=== PATIENT | female | born 1970 | race Caucasian/White ===

== ENCOUNTER 2023-07-21 13:41 | Observation (INO) ==
[2023-07-21] MEDS ORDERED: NovoLIN R (or HumuLIN R) SUBCUT PRN (18:48)
[2023-07-21] MEDS ORDERED: CONSULT PHARMACY - POTASSIUM & MAGNESIUM XX SCH (19:00)
--- NOTE | 2023-07-21 19:00 | EKG ---
Test Reason : sob Blood Pressure : */* mmHG Vent. Rate : 86 BPM Atrial Rate : 86 BPM P-R Int : 170 ms QRS Dur : 88 ms QT Int : 388 ms P-R-T Axes : 54 41 67 degrees QTc Int : 464 ms Normal sinus rhythm Low voltage QRS Borderline ECG No previous ECGs available Confirmed by Cedric Gallegos ([id number]) on 07/24/2023 9:18:27 AM Referred By: Confirmed By: Cedric Gallegos
[2023-07-21 19:28] LABS: BASOPHILS # (AUTO) 0.1 X10^3/uL (0.0-0.1); BASOPHILS % (AUTO) 0.8 % (0.2-1.0); EOSINOPHILS # (AUTO) 0.4 x10^3/uL (0.0-0.2); EOSINOPHILS % (AUTO) 3.5 % (0.9-2.9); HEMATOCRIT 36.9 % (36.0-47.0); HEMOGLOBIN 12.2 g/dL (12.0-16.0); LYMPHOCYTES # (AUTO) 1.4 X10^3/uL (1.3-2.9); LYMPHOCYTES % (AUTO) 13.2 % (21.0-51.0); MEAN CORPUSCULAR HGB CONC 33.1 g/dL (33.0-35.0); MEAN CORPUSCULAR VOLUME 87.6 fL (80.0-100.0); MEAN PLATELET VOLUME 7.9 fL (7.4-11.0); MONOCYTES # (AUTO) 0.5 x10^3/uL (0.3-0.8); MONOCYTES % (AUTO) 4.9 % (0.0-13.0); NEUTROPHILS % (AUTO) 77.6 % (42.0-75.0); PLATELET COUNT 311 X10^3/uL (150.0-450.0); RED BLOOD COUNT 4.21 X10^6/uL (3.5-5.4); RED CELL DISTRIBUTION WIDTH 14.6 % (11.6-16.5); WHITE BLOOD COUNT 10.3 X10^3/uL (3.6-10.0)
[2023-07-21 19:38] LABS: ALBUMIN 2.7 g/dL (3.4-5.0); CARBON DIOXIDE 37.7 mmol/L (21-32); CREATININE 1.64 mg/dL (0.55-1.02); POTASSIUM 3.8 mmol/L (3.5-5.1); TOTAL PROTEIN 7.1 g/dL (6.4-8.2)
[2023-07-21] MEDS ORDERED: K-DUR TAB 20 MEQ PO ONE (20:00)
[2023-07-21] MEDS: NS 1,000 ML IV 1,000 ML IV SCH (22:45)
[2023-07-21] MEDS: ZOSYN VIAL 4.5 GRAMS 4.5 G in NS 100 ML IV 100 ML IV SCH (22:45)
[2023-07-21] MEDS: NICOTINE PATCH TD SCH (22:46)
[2023-07-21] MEDS: MAG-OX TAB PO SCH ×2 (22:46→22:47)
[2023-07-21] MEDS: SNACK - Diabetic Appropriate PO SCH ×2 (22:47→22:48)
[2023-07-21] MEDS: PATIENT'S HOME MEDICATION (Buprenorphine Hcl 8 mg tablet, sublingual) SL SCH (22:47)
[2023-07-21] MEDS: CATAPRES TAB 0.1 MG PO SCH (22:47)
--- NOTE | 2023-07-22 01:15 | RAD ---
EXAM:CHEST, 1 VIEWHISTORY:SOB;COMPARISON:No relevant prior studies available.TECHNIQUE:Chest radiographic imaging, AP portable projection, 1 imageFINDINGS:No cardiomegaly.No focal airspace disease.No pleural effusion.No pneumothorax.No acute osseous abnormality.IMPRESSION:No imaging findings of acute cardiopulmonary disease.THIS IS AN ELECTRONICALLY VERIFIED FINAL REPORT07/22/2023 1:12 AM - Electronically signed by Davion Walker MD
[2023-07-22] MEDS ORDERED: TYLENOL 325 MG TAB PO PRN (02:38)
[2023-07-22 04:38] LABS: BASOPHILS # (AUTO) 0.1 X10^3/uL (0.0-0.1); BASOPHILS % (AUTO) 0.9 % (0.2-1.0); EOSINOPHILS # (AUTO) 0.3 x10^3/uL (0.0-0.2); EOSINOPHILS % (AUTO) 3.6 % (0.9-2.9); HEMATOCRIT 35.7 % (36.0-47.0); HEMOGLOBIN 11.8 g/dL (12.0-16.0); LYMPHOCYTES # (AUTO) 1.6 X10^3/uL (1.3-2.9); LYMPHOCYTES % (AUTO) 16.8 % (21.0-51.0); MEAN CORPUSCULAR HEMOGLOBIN 29.1 pg (27.0-34.0); MEAN CORPUSCULAR VOLUME 88.2 fL (80.0-100.0); MONOCYTES # (AUTO) 0.6 x10^3/uL (0.3-0.8); NEUTROPHILS # (AUTO) 6.9 x10^3/uL (2.2-4.8); NEUTROPHILS % (AUTO) 72.7 % (42.0-75.0); PLATELET COUNT 322 X10^3/uL (150.0-450.0); RED BLOOD COUNT 4.05 X10^6/uL (3.5-5.4); RED CELL DISTRIBUTION WIDTH 14.8 % (11.6-16.5); WHITE BLOOD COUNT 9.4 X10^3/uL (3.6-10.0)
[2023-07-22 04:48] LABS: ALBUMIN 2.7 g/dL (3.4-5.0); CALCIUM 9.1 mg/dL (8.5-10.1); CARBON DIOXIDE 38.1 mmol/L (21-32); COR CA(FOR HYPOALB) 10.1 mg/dL (8.5-10.1); CREATININE 1.55 mg/dL (0.55-1.02); POTASSIUM 3.9 mmol/L (3.5-5.1); TOTAL PROTEIN 7.1 g/dL (6.4-8.2)
[2023-07-22] MEDS: PATIENT'S HOME MEDICATION (Buprenorphine Hcl 8 mg tablet, sublingual) SL SCH ×3 (05:59→21:12)
[2023-07-22] MEDS: CATAPRES TAB 0.1 MG PO SCH ×3 (05:59→21:12)
[2023-07-22] MEDS: ZOSYN VIAL 4.5 GRAMS 4.5 G in NS 100 ML IV 100 ML IV SCH ×3 (05:59→21:11)
[2023-07-22] MEDS: NS 1,000 ML IV 1,000 ML IV SCH ×2 (07:35→21:28)
[2023-07-22] MEDS ORDERED: CONSULT PHARMACY - POTASSIUM & MAGNESIUM XX SCH (08:00)
[2023-07-22] MEDS: NICOTINE PATCH TD SCH (08:37)
[2023-07-22] MEDS: MAG-OX TAB PO SCH ×2 (08:38→09:52)
[2023-07-22] MEDS: CELEXA PO SCH (08:38)
[2023-07-22] MEDS: ZYLOPRIM PO SCH (08:38)
[2023-07-22] MEDS: COZAAR PO SCH (10:53)
[2023-07-22] MEDS: LOVENOX INJ 40 MG SYR SC SCH (10:54)
--- NOTE | 2023-07-22 10:56 | VAS ---
EXAM:[facility] Bilateral lower extremity DVT ultrasound examination with Doppler imaging.HISTORY:; BLE CELLULITIS, CHF, SOB . Evaluate for evidence for DVT.Bilateral lower extremity pain and swelling.COMPARISON:: NoneTECHNIQUE:Ultrasound of the deep venous vasculature of the bilateral lower extremities was performed. Color and spectral doppler imaging was utilized for the purposes of this examination as well.FINDINGS:The deep veins of both lower extremities are normal in size and configuration. No intraluminal filling defects are seen on grayscale or color flow imaging.The veins compress normally. Doppler waveforms are normal at rest and with augmentation.IMPRESSION:Negative bilateral lower extremity DVT ultrasound exam(s).THIS IS AN ELECTRONICALLY VERIFIED FINAL REPORT07/22/2023 10:53 AM - Electronically signed by Sam Marte
[2023-07-22] MEDS ORDERED: PHARMACY CONSULT - LOVENOX XX SCH (11:00)
--- NOTE | 2023-07-22 13:16 | DR.UPDATE ---
H&P Update Prescription drug monitoring program results: PDMP reviewed and no concerns identified H&P Reviewed: Yes Any changes to H&P?: Yes Changes noted:: WAS A DIRECT ADMISSION FOR TREATMENT OF BILATERAL LOWER EXTREMITY CELLULITIS, BLE SWELLING, SHORTNESS OF BREATH, R/O DVT, CHF. SHE HAS A PMH OF CHF, HTN, ARTHRITIS, GOUT, DM II. SHE HAD BEEN TREATED IN THE OFFICE WITH A ROUND OF DOXYCYCLINE, BUT DENIED IMPROVEMENT IN SYMPTOMS DESPITE COMPLIANCE WITH MEDS. ON ADMISSION, HER VITALS WERE: 98.2-85-20-92%-132/76. LABS WERE OBTAINED. WBC 10.3, RBC 4.21, HGB 12.2, HCT 36.9, PLT COUNT 311, D-DIMER 1.03, SODIUM 136, POTASSIUM 3.8, CHLORIDE 96, CARBON DIOXIDE 37.7, BUN 34, CREATININE 1.64, GLUCOSE 134, MAGNESIUM 1.5, TOTAL BILI 0.30, AST 18, ALT 25, ALK PHOS 91, CREATINE KINASE 112, TROPONIN 16.8, BNP 12.3, TOTAL PROTEIN 7.1, ALBUMIN 2.7. BLOOD CULTURES WERE SET UP. CHEST XRAY WAS OBTAINED AND REVEALED: No imaging findings of acute cardiopulmonary disease. BILATERAL LOWER EXTREMITY VENOUS DOPPLER WAS NEGATIVE FOR DVT. EKG WAS OBTAINED AND REVEALED: NORMAL SINUS RHYTHM WITH HR 86 BPM. SHE WAS STARTED ON NORMAL SALINE AT KVO, ZOSYN 4.5 IV TID, OTBS ACHS, NOVOLIN R SLIDING SCALE, LOVENOX 40MG SC DAILY, TYLENOL 650MG Q4H PRN, NICOTINE 21MG PATCH. WE WILL RESUME HER HOME MEDICATIONS OF ZYLOPRIM, CELEXA, CATAPRES, BUPRENORPHINE, COZAAR. OTHERWISE, WE PLAN TO FOLLOW UP WITH AM LABS AND CONTINUE TO MONITOR. TIME SPENT ON CLINICAL ASSESSMENT, REVIEWING LABS AND IMAGING, DECISION MAKING, AND DOCUMENTATION GREATER THAN 75 MINUTES. Patient was examined?: Yes Vital Signs: Temp Pulse Resp BP Pulse Ox O2 Del Method O2 Flow Rate 07/22/23 10:30 79 29 H 95 07/22/23 10:15 78 20 93 L 07/22/23 10:00 119/59 07/22/23 10:00 78 20 94 L 07/22/23 09:45 78 28 H 93 L 07/22/23 09:30 80 31 H 95 07/22/23 09:15 72 20 95 07/22/23 09:00 73 31 H 96 07/22/23 09:00 130/68 07/22/23 08:49 70 34 H 95 07/22/23 08:30 71 23 97 07/22/23 08:15 68 16 93 L 07/22/23 09:03 Nasal Cannula 3 07/22/23 08:00 125/78 07/22/23 08:00 97.7 F 69 20 94 L 07/22/23 07:45 72 22 95 07/22/23 07:30 72 32 H 94 L 07/22/23 07:15 78 29 H 93 L 07/22/23 07:00 78 18 94 L 07/22/23 07:00 117/71 07/22/23 06:45 79 16 94 L 07/22/23 06:30 80 32 H 94 L 07/22/23 06:15 82 40 H 93 L 07/22/23 06:00 81 14 95 07/22/23 06:00 111/70 07/22/23 05:00 84 20 94 L 07/22/23 05:00 102/51 07/22/23 04:01 20 07/22/23 04:00 84 33 H 94 L 07/22/23 04:00 111/56 07/22/23 03:00 81 28 H 95 07/22/23 03:00 133/56 07/22/23 03:01 28 H 07/22/23 02:37 81 22 96 07/22/23 02:00 80 27 H 96 07/22/23 02:00 130/59 07/22/23 01:45 77 28 H 97 07/22/23 01:30 79 18 97 07/22/23 01:24 91 H 86 L 07/22/23 01:00 91 H 18 95 07/22/23 01:00 148/65 07/22/23 00:45 90 21 95 07/22/23 00:30 87 28 H 94 L 07/22/23 00:15 93 H 30 H 93 L 07/22/23 00:04 85 31 H 93 L 07/22/23 00:04 165/74 07/22/23 00:00 85 28 H 93 L 07/22/23 00:04 94 H 21 165/74 95 Nasal Cannula 3 07/21/23 23:03 82 34 H 96 07/21/23 23:03 135/89 07/21/23 23:00 84 30 H 96 07/21/23 22:45 88 25 H 95 07/21/23 22:30 89 40 H 94 L 07/21/23 22:15 92 H 43 H 94 L 07/21/23 22:00 89 28 H 93 L 07/21/23 22:00 140/68 07/21/23 21:00 85 19 94 L 07/21/23 21:00 134/73 07/21/23 20:29 Nasal Cannula 2 07/21/23 20:00 83 28 H 132/66 95 07/21/23 20:00 132/66 07/21/23 19:13 98.3 F 83 25 H 125/68 97 07/21/23 18:30 86 34 H 91 L 07/21/23 18:15 89 5 L 91 L 07/21/23 18:04 127/67 07/21/23 18:04 85 19 07/21/23 19:00 Nasal Cannula 2 07/21/23 18:00 87 33 H 07/21/23 17:45 94 H 50 H 91 L 07/21/23 17:30 82 36 H 94 L 07/21/23 17:15 85 26 H 89 L 07/21/23 17:01 82 34 H 93 L 07/21/23 17:01 114/56 07/21/23 17:00 82 28 H 94 L 07/21/23 16:45 79 21 97 07/21/23 16:37 82 95 07/21/23 16:15 87 47 H 95 07/21/23 16:01 83 25 H 96 07/21/23 16:01 163/63 07/21/23 16:00 82 26 H 96 07/21/23 15:45 83 27 H 95 07/21/23 15:30 85 33 H 87 L 07/21/23 15:15 86 28 H 87 L 07/21/23 15:02 85 21 91 L 07/21/23 15:02 165/77 07/21/23 15:42 Nasal Cannula 2 07/21/23 15:00 98.2 F 85 20 92 L 07/21/23 14:45 92 H 19 92 L 07/21/23 14:42 94 H 20 92 L 07/21/23 14:42 132/76 07/21/23 14:40 98 H 20 91 L 07/21/23 15:04 Room Air FiO2 07/22/23 10:30 07/22/23 10:15 07/22/23 10:00 07/22/23 10:00 07/22/23 09:45 07/22/23 09:30 07/22/23 09:15 07/22/23 09:00 07/22/23 09:00 07/22/23 08:49 07/22/23 08:30 07/22/23 08:15 07/22/23 09:03 07/22/23 08:00 07/22/23 08:00 07/22/23 07:45 07/22/23 07:30 07/22/23 07:15 07/22/23 07:00 07/22/23 07:00 07/22/23 06:45 07/22/23 06:30 07/22/23 06:15 07/22/23 06:00 07/22/23 06:00 07/22/23 05:00 07/22/23 05:00 07/22/23 04:01 07/22/23 04:00 07/22/23 04:00 07/22/23 03:00 07/22/23 03:00 07/22/23 03:01 07/22/23 02:37 07/22/23 02:00 07/22/23 02:00 07/22/23 01:45 07/22/23 01:30 07/22/23 01:24 07/22/23 01:00 07/22/23 01:00 07/22/23 00:45 07/22/23 00:30 07/22/23 00:15 07/22/23 00:04 07/22/23 00:04 07/22/23 00:00 07/22/23 00:04 07/21/23 23:03 07/21/23 23:03 07/21/23 23:00 07/21/23 22:45 07/21/23 22:30 07/21/23 22:15 07/21/23 22:00 07/21/23 22:00 07/21/23 21:00 07/21/23 21:00 07/21/23 20:29 28 07/21/23 20:00 07/21/23 20:00 07/21/23 19:13 07/21/23 18:30 07/21/23 18:15 07/21/23 18:04 07/21/23 18:04 07/21/23 19:00 07/21/23 18:00 07/21/23 17:45 07/21/23 17:30 07/21/23 17:15 07/21/23 17:01 07/21/23 17:01 07/21/23 17:00 07/21/23 16:45 07/21/23 16:37 07/21/23 16:15 07/21/23 16:01 07/21/23 16:01 07/21/23 16:00 07/21/23 15:45 07/21/23 15:30 07/21/23 15:15 07/21/23 15:02 07/21/23 15:02 07/21/23 15:42 28 07/21/23 15:00 07/21/23 14:45 07/21/23 14:42 07/21/23 14:42 07/21/23 14:40 07/21/23 15:04
[2023-07-22 15:55] VITALS: RESP 20
[2023-07-22] MEDS: SNACK - Diabetic Appropriate PO SCH (21:12)
[2023-07-23] MEDS: CATAPRES TAB 0.1 MG PO SCH (05:39)
[2023-07-23] MEDS: PATIENT'S HOME MEDICATION (Buprenorphine Hcl 8 mg tablet, sublingual) SL SCH (05:39)
[2023-07-23] MEDS: ZOSYN VIAL 4.5 GRAMS 4.5 G in NS 100 ML IV 100 ML IV SCH (05:39)
[2023-07-23 06:22] LABS: BASOPHILS # (AUTO) 0.1 X10^3/uL (0.0-0.1); BASOPHILS % (AUTO) 1.7 % (0.2-1.0); EOSINOPHILS # (AUTO) 0.4 x10^3/uL (0.0-0.2); EOSINOPHILS % (AUTO) 4.9 % (0.9-2.9); HEMATOCRIT 35.6 % (36.0-47.0); HEMOGLOBIN 11.6 g/dL (12.0-16.0); LYMPHOCYTES # (AUTO) 1.8 X10^3/uL (1.3-2.9); LYMPHOCYTES % (AUTO) 21.7 % (21.0-51.0); MEAN CORPUSCULAR HGB CONC 32.7 g/dL (33.0-35.0); MEAN CORPUSCULAR VOLUME 88.8 fL (80.0-100.0); MEAN PLATELET VOLUME 7.9 fL (7.4-11.0); MONOCYTES # (AUTO) 0.5 x10^3/uL (0.3-0.8); MONOCYTES % (AUTO) 6.1 % (0.0-13.0); NEUTROPHILS # (AUTO) 5.4 x10^3/uL (2.2-4.8); NEUTROPHILS % (AUTO) 65.6 % (42.0-75.0); PLATELET COUNT 294 X10^3/uL (150.0-450.0); RED BLOOD COUNT 4.01 X10^6/uL (3.5-5.4); RED CELL DISTRIBUTION WIDTH 14.8 % (11.6-16.5); WHITE BLOOD COUNT 8.2 X10^3/uL (3.6-10.0)
[2023-07-23 06:38] LABS: ALANINE AMINOTRANSFERASE 30 Units/L (12-78); ALBUMIN 2.5 g/dL (3.4-5.0); ALKALINE PHOSPHATASE 81 Units/L (46-116); ASPARTATE AMINO TRANSFERASE 23 Units/L (15-37); BLOOD UREA NITROGEN 31 mg/dL (7-18); CALCIUM 8.7 mg/dL (8.5-10.1); CHLORIDE 100 mmol/L (98-107); COR CA(FOR HYPOALB) 9.9 mg/dL (8.5-10.1); CREATININE 1.44 mg/dL (0.55-1.02); GLUCOSE 110 mg/dL (65-99); POTASSIUM 3.9 mmol/L (3.5-5.1); SODIUM 136 mmol/L (136-145); TOTAL PROTEIN 6.8 g/dL (6.4-8.2); eGFR NON BLACK RACES 40 (>60)
[2023-07-23 08:10] VITALS: BMI 49.2
[2023-07-23 08:32] VITALS: BP 103/58; PULSE 72; O2SAT 98
[2023-07-23 09:32] VITALS: TEMP 98.1
[2023-07-23] MEDS: NICOTINE PATCH TD SCH (10:00)
[2023-07-23] MEDS: ZYLOPRIM PO SCH (10:00)
[2023-07-23] MEDS: LOVENOX INJ 40 MG SYR SC SCH (10:00)
[2023-07-23] MEDS: CELEXA PO SCH (10:00)
[2023-07-23] MEDS: COZAAR PO SCH (10:00)
[2023-07-23] MEDS: NS 1,000 ML IV 1,000 ML IV SCH (10:01)
== END 2023-07-23 12:20 | disposition home or self-care (01) ==
LOC: ICU → MED/SURG 07-22 10:57
PROVIDERS: ADMIT Internal Medicine; ATTEND Internal Medicine
DX: E83.42 Hypomagnesemia; E11.65 Type 2 diabetes mellitus with hyperglycemia; L03.116 Cellulitis of left lower limb; I11.0 Hypertensive heart disease with heart failure; R60.0 Localized edema; R79.1 Abnormal coagulation profile; R06.02 Shortness of breath; L03.115 Cellulitis of right lower limb; I50.9 Heart failure, unspecified